=== PATIENT | female | born 1970 | race Caucasian/White ===

== ENCOUNTER 2017-08-04 23:53 | Inpatient (IN) | payer BC, OTHER ==
[2017-08-05 01:19] LABS: BASO # 0.1 10^3/uL (0.0-0.2); BASO % 0.3 % (0.0-1.0); EOS # 0.2 10^3/uL (0.0-0.50); EOS % 1.2 % (0.0-3.0); IMMATURE GRANULOCYTE # 0.1 10^3/uL (0-0); IMMATURE GRANULOCYTE % 0.3 % (0-0); LYMPH # 1.8 10^3/uL (1.5-4.5); LYMPH % 11.9 % (24.0-44.0); MEAN CORPUSCULAR HEMOGLOBIN 31.1 pg (27.0-33.0); MEAN CORPUSCULAR HGB CONC 33.7 g/dl (32.0-36.5); MEAN CORPUSCULAR VOLUME 92.3 fl (80.0-96.0); MONO % 6.5 % (0.0-5.0); NEUTROPHILS % 79.8 % (36.0-66.0); PLATELET COUNT, AUTOMATED 279 10^3/uL (150-450)
[2017-08-05 01:24] LABS: PLT CLUMPS? POS FLAG; POS COUNT POS FLAG
[2017-08-05] MEDS: ONDANSETRON 4MG/2ML VIAL (J2405) IV ×2 (01:24→03:33)
[2017-08-05] MEDS: MORPHINE 2 MG/ML 1ML SYRINGE IV (01:25)
[2017-08-05 01:31] LABS: ALBUMIN 4.2 GM/DL (3.2-5.2); ALBUMIN/GLOBULIN RATIO 0.98 (1.00-1.93); ALKALINE PHOSPHATASE 71 U/L (45-117); ALT/SGPT 26 U/L (12-78); ANION GAP 5 MEQ/L (8-16); AST/SGOT 16 U/L (7-37); BILIRUBIN,DIRECT 0.1 MG/DL (0.0-0.2); BILIRUBIN,TOTAL 0.4 MG/DL (0.2-1.0); BLOOD UREA NITROGEN 20 MG/DL (7-18); CALCIUM LEVEL 9.1 MG/DL (8.5-10.1); CARBON DIOXIDE LEVEL 28 MEQ/L (21-32); CHLORIDE LEVEL 108 MEQ/L (98-107); CREATININE FOR GFR 0.79 MG/DL (0.55-1.02); GLOMERULAR FILTRATION RATE > 60.0 (>58); GLUCOSE, FASTING 114 MG/DL (70-105); POTASSIUM SERUM 3.8 MEQ/L (3.5-5.1); SODIUM LEVEL 141 MEQ/L (136-145); TOTAL PROTEIN 8.5 GM/DL (6.4-8.2)
[2017-08-05 01:31] LABS: LACTIC ACID SEPSIS PROTOCOL 1.2 MMOL/L (0.4-2.0)
[2017-08-05] MEDS ORDERED: ISOVUE-370 76% 100ML VIAL (Q9967) As Ordered (01:32)
[2017-08-05 01:43] LABS: ADD MORPHOLOGY? YES
[2017-08-05 01:44] LABS: PLATELET CLUMPS SMALL AMT
[2017-08-05] MEDS: MORPHINE 4 MG/ML 1ML SYRINGE IV (03:33)
[2017-08-05] MEDS ORDERED: ACETAMINOPHEN TAB 650MG DOSE (2X325MG) PO (04:00)
[2017-08-05] MEDS ORDERED: ONDANSETRON 4MG/2ML VIAL (J2405) IV (04:00)
[2017-08-05] MEDS ORDERED: NORCO, ANEXSIA 5/325MG TABLET (HYDROcodone/ACETAMINOPHEN) PO ×2 (04:00)
[2017-08-05] MEDS ORDERED: MORPHINE 4 MG/ML 1ML SYRINGE IV (04:00)
[2017-08-05] MEDS: LR 1,000 ML IV ×3 (04:10→20:48)
[2017-08-05] MEDS: GABAPENTIN 300 MG CAP PO ×2 (08:50→20:44)
[2017-08-05] MEDS: ENOXAPARIN 40 MG/0.4 ML SYRINGE (J1650) SC (08:51)
[2017-08-05] MEDS: PANTOPRAZOLE 40MG INJ (PROTONIX) (C9113) IV (08:51)
[2017-08-05] MEDS: ESTRADIOL 1 MG TAB PO (20:45)
[2017-08-06] MEDS: LR 1,000 ML IV (03:43)
[2017-08-06 06:55] LABS: BASO % 0.4 % (0.0-1.0); EOS # 0.1 10^3/uL (0.0-0.50); EOS % 2.9 % (0.0-3.0); IMMATURE GRANULOCYTE % 0.2 % (0-0); LYMPH # 1.7 10^3/uL (1.5-4.5); LYMPH % 34.3 % (24.0-44.0); MEAN CORPUSCULAR HEMOGLOBIN 31.1 pg (27.0-33.0); MEAN CORPUSCULAR HGB CONC 33.1 g/dl (32.0-36.5); MEAN CORPUSCULAR VOLUME 94.1 fl (80.0-96.0); MONO # 0.5 10^3/uL (0.0-0.8); MONO % 10.8 % (0.0-5.0); NEUTROPHILS # 2.5 10^3/uL (1.8-7.7); NEUTROPHILS % 51.4 % (36.0-66.0); PLATELET COUNT, AUTOMATED 221 10^3/uL (150-450); WHITE BLOOD COUNT 4.9 10^3/uL (4.0-10.0)
[2017-08-06 07:20] LABS: ANION GAP 5 MEQ/L (8-16); BLOOD UREA NITROGEN 8 MG/DL (7-18); CALCIUM LEVEL 7.8 MG/DL (8.5-10.1); CARBON DIOXIDE LEVEL 30 MEQ/L (21-32); CHLORIDE LEVEL 111 MEQ/L (98-107); CREATININE FOR GFR 0.64 MG/DL (0.55-1.02); GLOMERULAR FILTRATION RATE > 60.0 (>58); GLUCOSE, FASTING 96 MG/DL (70-105); POTASSIUM SERUM 3.7 MEQ/L (3.5-5.1); SODIUM LEVEL 146 MEQ/L (136-145)
[2017-08-06] MEDS: GABAPENTIN 300 MG CAP PO (09:03)
[2017-08-06] MEDS: PANTOPRAZOLE 40MG INJ (PROTONIX) (C9113) IV (09:03)
[2017-08-06] MEDS: ENOXAPARIN 40 MG/0.4 ML SYRINGE (J1650) SC (09:04)
== END 2017-08-06 12:53 | disposition home or self-care (01) | DRG 247 ==
LOC: M ED 23:53 → M ED INP 08-05 03:50 → M PED 08-05 05:00
DX: K56.690 Other partial intestinal obstruction (principal); Z68.42 Body mass index [BMI] 45.0-49.9, adult; E66.01 Morbid (severe) obesity due to excess calories; Z79.899 Other long term (current) drug therapy

== ENCOUNTER 2017-09-30 18:13 | Emergency (ER) | payer BC, OTHER ==
[2017-09-30 19:21] LABS: INFLUENZA A AMPLIFICATION NEGATIVE (NEGATIVE); INFLUENZA B AMPLIFICATION NEGATIVE (NEGATIVE)
== END 2017-09-30 20:01 | disposition home or self-care (01) ==
LOC: M ED 18:13
DX: J06.9 Acute upper respiratory infection, unspecified (principal); M54.5 Low back pain; K21.9 Gastro-esophageal reflux disease without esophagitis; F32.9 Major depressive disorder, single episode, unspecified; Z98.84 Bariatric surgery status; F17.200 Nicotine dependence, unspecified, uncomplicated; Z79.899 Other long term (current) drug therapy
CPT/HCPCS: 87430

== ENCOUNTER 2019-09-10 15:46 | Emergency (ER) | payer BC, OTHER ==
[~2019-09-10] VITALS: Ht 157.5 cm; Wt 119.5 kg
[~2019-09-10 15:46] MED LIST: ESTR2TAB2 PO; GABA-843 PO; GABA600T4; GABA600T4 PO; OMEP1CAP73 PO; TRAM50TA2 PO; ZOFR4TAB14 PO
[2019-09-10] MEDS ORDERED: FERR325T3 PO (16:01)
[2019-09-10] MEDS ORDERED: VITA250T50 PO (16:01)
--- NOTE | 2019-09-10 17:10 | REP ---
PA and lateral chest: Comparison is 05/25/2015. There is no pneumothorax, hemothorax or pulmonary contusion. Lung galan are clear. Cardiac size is normal. The hank, mediastinum, skeletal structures are unremarkable. The previous bibasilar atelectasis has resolved. Impression: Negative PA and lateral chest. Electronically Signed by Gilbert Merchant MD 09/10/2019 05:01 P
--- NOTE | 2019-09-10 17:10 | REP ---
Right ribs for views: Comparison is 05/25/2015. The there is no rib fracture or other rib abnormality. Impression: Negative right rib series. Electronically Signed by Gilbert Merchant MD 09/10/2019 05:02 P
[2019-09-10] MEDS ORDERED: LIDO1CRE2 TOP (17:31)
[2019-09-10 17:36] VITALS: BP 152/85
== END 2019-09-10 17:44 | disposition home or self-care (01) ==
LOC: M ED 15:46
DX: R07.89 Other chest pain (principal); Z87.09 Personal history of other diseases of the respiratory system; Z98.84 Bariatric surgery status; F17.200 Nicotine dependence, unspecified, uncomplicated; Z79.890 Hormone replacement therapy; Z79.899 Other long term (current) drug therapy

== ENCOUNTER 2019-10-12 21:20 | Emergency (ER) | payer BC, OTHER ==
[~2019-10-12] VITALS: Ht 157.5 cm; Wt 117.7 kg
[~2019-10-12 21:20] MED LIST changes: +FERR325T3 PO; +LIDO1CRE2 TOP; +VITA250T50 PO
[2019-10-12 21:21] VITALS: BP 162/78
[2019-10-12 22:40] LABS: INFLUENZA A AMPLIFICATION POSITIVE (NEGATIVE); INFLUENZA B AMPLIFICATION NEGATIVE (NEGATIVE)
== END 2019-10-13 00:15 | disposition home or self-care (01) ==
LOC: M ED 21:20
DX: J09.X2 Influenza due to identified novel influenza A virus with other respiratory manifestations (principal); Z20.89 Contact with and (suspected) exposure to other communicable diseases; M54.30 Sciatica, unspecified side; K21.9 Gastro-esophageal reflux disease without esophagitis; Z98.84 Bariatric surgery status; F17.200 Nicotine dependence, unspecified, uncomplicated; Z79.890 Hormone replacement therapy; Z79.899 Other long term (current) drug therapy

== ENCOUNTER 2019-10-26 12:21 | Emergency (ER) | payer BC, OTHER ==
[~2019-10-26] VITALS: Ht 157.5 cm; Wt 119.4 kg
[2019-10-26] MEDS ORDERED: GUAI1SOL2 (12:30)
--- NOTE | 2019-10-26 13:54 | REP ---
Chest x-ray: Two views. History: Cough. Comparison study: September 10, 2019. Findings: The lungs are well inflated and free of infiltrate. The pleural angles are sharp. The heart size is normal. Pulmonary vasculature is not increased. No significant bony abnormality is seen. Impression: Negative chest x-ray. Electronically Signed by Steve Berumen MD 10/26/2019 01:46 P
[2019-10-26 14:30] LABS: INFLUENZA A AMPLIFICATION NEGATIVE (NEGATIVE); INFLUENZA B AMPLIFICATION NEGATIVE (NEGATIVE)
[2019-10-26 14:35] VITALS: BP 140/69
== END 2019-10-26 14:40 | disposition home or self-care (01) ==
LOC: M ED 12:21
DX: R05 Cough (principal); J44.9 Chronic obstructive pulmonary disease, unspecified; F17.200 Nicotine dependence, unspecified, uncomplicated; Z87.09 Personal history of other diseases of the respiratory system; Z79.890 Hormone replacement therapy; Z79.899 Other long term (current) drug therapy